=== PATIENT | female | born 1995 | race Caucasian/White ===

== ENCOUNTER → 2024-05-03 07:41 | Outpatient (CLI) | payer OTHER, SELFPAY ==
--- NOTE | 2024-05-03 07:43 | DI.ECHO.S_ITS ---
[facility] : : [address] : : [place] : : [id number] : : Phone: [phone] Echocardiogram Report + + :Name: KELBY WHITNEY Study Date: 05/03/2024 Height: 60 in : :Hospital ReadingLocation: Weight: 190 lb : : Gender: Female BSA: 1.8 m2 : :: 1995 Age: 28 yrs BP: 117/81 mmHg: :Reason For Study: ISCHEMIC HEART DISEASE : :Ordering Physician: REESE, : :PRIYANKA Performed By: Monica Good : :Referring: PRIYANKA LEIGH : + + Interpretation Summary 1) Normal left ventricular thickness, size, wall motion, and systolic function (EF 60-65%). 2) Normal right ventricular size and function. 3) No significant valvular abnormalities. 4) No prior Echo available for comparison. Procedure: A two-dimensional transthoracic echocardiogram with color flow and Doppler was performed. The study quality was technically adequate. There is no prior echocardiogram noted for this patient. The patient was in sinus bradycardia with heart rates between 54-74 bpm during the exam. Left Ventricle: The left ventricle is normal in size and wall thickness. The ejection fraction is estimated to be 60-65%. Left ventricular systolic function appears normal without focal wall motion abnormalities. Right Ventricle: The right ventricle is normal in size and function. Atria: The left atrial size is normal. Right atrial size is normal. There is no Doppler evidence for an interatrial shunt. Mitral Valve: The mitral valve is normal in structure and function. There is trace mitral regurgitation. Aortic Valve: The aortic valve is trileaflet. The aortic valve opens well. There is no aortic valve stenosis. No aortic regurgitation is present. Tricuspid Valve: The tricuspid valve is normal in structure and function. There is trace tricuspid regurgitation. Pulmonary artery pressures cannot be estimated because of the lack of a measurable TR jet velocity. Pulmonic Valve: The pulmonic valve leaflets are thin and pliable; valve motion is normal. There is trace pulmonic regurgitation. Great Vessels: The aortic root is normal size. The dimensions of the ascending aorta are normal. The IVC is of normal diameter and collapses greater than 50% with a sniff. This suggests a low right atrial pressure of 3 mm Hg. Pericardium/ Pleura There is no pericardial effusion. There is no pleural effusion. MMode/2D Measurements & Calculations LVIDd: 4.1 cm LVOT diam: 2.0 cm LVIDs: 2.7 cm Ao root diam: 2.8 cm FS: 34.4 % asc Aorta Diam: 3.0 cm IVSd: 0.82 cm Ao Arch Diam (Prox Trans): 2.8 cm LVPWd: 0.69 cm LV cotter. diameter/BSA (cm/m^2): 2.3 LV sys. diameter/BSA (cm/m^2): 1.5 LA A2 area: 15.8 cm2 RA long axis: 4.4 cm LA A4 area: 12.4 cm2 RA area: 11.5 cm2 LA length (vol): 4.5 cm RA vol: 25.4 ml LA vol: 36.8 ml RA : 13.9 ml/m2 LA vol index: 20.1 ml/m2 IVC diam: 0.98 cm RVD1 (basal): 3.6 cm RVD2 (mid): 3.4 cm TAPSE: 2.0 cm Doppler Measurements & Calculations Ao V2 max: 149.4 cm/sec LVOT Max Walter: 102.0 cm/sec Ao V2 mean: 107.6 cm/sec LV V1 max P.2 mmHg Ao max P.9 mmHg LV V1 VTI: 22.2 cm Ao mean P.0 mmHg KEYON(I,D): 2.1 cm2 Ao V2 VTI: 32.4 cm KEYON(V,D): 2.1 cm2 sev ratio: 0.69 KEYON indexed to BSA (cm^2/m^2): 1.2 MV E max walter: 75.5 cm/sec PA V2 max: 86.8 cm/sec MV A max walter: 39.0 cm/sec PA V2 mean: 65.1 cm/sec MV E/A: 1.9 PA mean P.8 mmHg Med Peak E' Walter: 11.4 cm/sec PA pr(Accel): 31.0 mmHg E/E' med: 6.6 Lat Peak E' Walter: 13.8 cm/sec E/E' lat: 5.5 E/e' average: 6.0 MV dec time: 0.22 sec SV(LVOT): 69.3 ml Reading Physician:12:40 PM
== END ==
LOC: ECHO 07:42
PROVIDERS: PCP Nurse Practitioner Primary Care; Referring Provider Chiropractor; Visit Provider Chiropractor
DX: I25.9 Chronic ischemic heart disease, unspecified (principal)
CPT/HCPCS: 93306

== ENCOUNTER 2024-08-11 06:43 | Emergency (ER) | payer OTHER, SELFPAY ==
[2024-08-11] VITALS (8 sets, daily range): BP systolic 94–125; BP diastolic 48–84; PULSE 65–92; RESP 9–17; TEMP 36.8; O2SAT 97–98; BMI 35.2
--- NOTE | 2024-08-11 06:56 | DI.RAD.S_ITS ---
PROCEDURE: XR CHEST 1V INDICATIONS: chest pain TECHNIQUE: One view of the chest was acquired. COMPARISON: None. FINDINGS: Surgical changes and devices: None. Lungs and pleura: Low lung volumes. No dense consolidation or pleural effusion Mediastinum: Normal heart size Bones and chest wall: No suspicious bony lesions. Overlying soft tissues appear unremarkable. IMPRESSION: Limited single view radiograph with low lung volumes. No acute abnormality. Dictated by: Arron Carvalho M.D. on 08/11/2024 at 7:50 Approved by: Arron Carvalho M.D. on 08/11/2024 at 7:50
--- NOTE | 2024-08-11 07:05 | EKG_ITS ---
[address] [address] Test Date: 2024-08-11 Pat Name: 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
[2024-08-11] MEDS: ASPIRIN 81 MG CHEW TAB 324 MG PO (07:17)
[2024-08-11 07:21] LABS: Add Manual Diff / Slide Review NO; Basophils Absolute Auto 100 /uL (0-100); Basophils Percent Auto 1.2 % (0-2); Eosinophils Absolute Auto 400 /uL (0-450); Eosinophils Percent Auto 7.8 % (2-4); Hematocrit 39.8 % (36-46); Lymphocytes Absolute Auto 1700 /uL (1100-4500); Lymphocytes Percent Auto 33.8 % (25-40); Mean Corpuscular HGB Conc 35.3 % (30-36); Mean Corpuscular Hemoglobin 29.1 PG (26-34); Mean Corpuscular Volume 82.4 fL (80-100); Monocytes Absolute Auto 400 /uL (0-900); Neutrophils Absolute Auto 2500 /uL (1500-7000); Neutrophils Percent Auto 49.2 % (50-75); Platelet Count 266 X10^3/uL (150-400); Red Blood Cell Count 4.82 X10^6/uL (4.0-5.2)
[2024-08-11 07:31] LABS: Albumin 3.7 g/dL (3.5-5.0); Albumin Globulin Ratio 1.2 (1.0-2.8); Alkaline Phosphatase 61 U/L (38-126); Aspartate Aminotransferase 30 IU/L (14-36); BUN Creatinine Ratio 23.9 (6-22); Bilirubin Total 0.6 mg/dL (0.2-1.3); Blood Urea Nitrogen 16 mg/dL (7-17); Calcium 8.8 mg/dL (8.4-10.2); Carbon Dioxide 21 mmol/L (22-32); Chloride 107 mmol/L (98-107); Creatine Kinase 103 U/L (30-135); Estimated Glomerular Filt Rate > 60 mL/min (>60); Glucose 148 mg/dL (70-100); Lipase 86 U/L (23-300); Magnesium 1.8 mg/dL (1.6-2.3); Potassium 3.7 mmol/L (3.4-5.1); Sodium 137 mmol/L (137-145); Total Protein 6.7 g/dL (6.3-8.2)
[2024-08-11 07:39] LABS: Alanine Aminotransferase 35 IU/L (<35); HEMOLYSIS 20 (0-50)
[2024-08-11 07:48] LABS: Troponin I < 0.012 ng/mL (0.01-0.034)
--- NOTE | 2024-08-11 07:53 | ED.CHESTPAIN ---
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 She is from [facility] but referral has not gone through. Reports she is having increased palpitations while lying flat without exerting herself. According to her watch her heart rate is in the 120s for approximately 10 minutes. She said this morning it woke her up at 4:30 a.m. and she has had 5 episodes. She currently is in a sinus rhythm with PACs heart rate 89. She has no shortness of breath. No fever or other symptoms. She does taken propranolol 10 mg daily prescribed by her psychiatrist. Related Data Allergies Allergy/AdvReac Type Severity Reaction Status Date / Time No Known Drug Allergies Allergy Verified 08/11/24 06:56 Patient History Social History Smoking Status: Never smoker Smoking Status: Never smoker Substance Use Type: does not use Exam Initial Vital Signs Initial Vital Signs: Vital Signs Pulse Rate 65 08/11/24 06:51 Respiratory Rate 17 08/11/24 06:51 Pulse Oximetry 98 08/11/24 06:51 GENERAL: Well-appearing 29-year-old female and in no acute distress. HEENT: Head atraumatic,EOMI, pupils reactive, face symmetric, moist mucous membranes CARDIOVASCULAR: Irregular no murmur RESPIRATORY: Breath sounds equal bilaterally, no wheezes rales or rhonchi. ABDOMEN: Soft, nontender. Normoactive bowel sounds all 4 quadrants. No guarding or rebound. EXTREMITIES: Normal range of motion, no clubbing or edema. Neurovascularly intact NEUROLOGICAL: Alert and oriented x4. SKIN: Warm, dry, no laceration, no petechiae, no rashes or lesions. Course Orders Ordered: ED Orders 08/11/24 06:56 XR chest 1V Stat EKG-12 Lead Stat 08/11/24 07:00 Complete Blood Count AUTO DIFF Stat Comprehensive Metabolic Panel Stat D Dimer Stat Lipase Stat Magnesium Stat Troponin & CK Cardiac Panel Stat Discontinued Medications Aspirin (Aspirin 81 Mg Chew Tab) 324 mg PO NOW ONE Stop: 08/11/24 06:57 Last Admin: 08/11/24 07:17 Dose: 324 mg Documented By: JACE Vital Signs Vital signs: Vital Signs - 8 hr 08/11/24 06:51 08/11/24 06:53 08/11/24 06:53 Temperature Pulse Rate 65 91 H Respiratory Rate 17 11 L Blood Pressure 125/84 Pulse Oximetry 98 98 Oxygen Delivery Method 08/11/24 06:57 08/11/24 07:00 08/11/24 07:00 Temperature 98.2 F Pulse Rate 92 H 90 Respiratory Rate 12 13 Blood Pressure 125/84 105/77 Pulse Oximetry 97 98 Oxygen Delivery Method Room Air Room Air 08/11/24 07:30 08/11/24 07:40 08/11/24 07:40 Temperature Pulse Rate 81 92 H Respiratory Rate 13 Blood Pressure 112/83 Pulse Oximetry 98 98 Oxygen Delivery Method 08/11/24 08:00 08/11/24 08:00 08/11/24 08:30 Temperature Pulse Rate 83 Respiratory Rate 10 L Blood Pressure 97/55 L 94/48 L Pulse Oximetry 98 Oxygen Delivery Method 08/11/24 08:30 Temperature Pulse Rate 74 Respiratory Rate 9 L Blood Pressure Pulse Oximetry 98 Oxygen Delivery Method MDM - Chest Pain Lab Data 08/11/24 07:00 08/11/24 07:00 Labs: Lab Results 08/11/24 Range/Units 07:00 WBC 5.0 (4.5-11.0) X10^3/uL RBC 4.82 (4.0-5.2) X10^6/uL Hgb 14.0 (12.0-16.0) g/dL Hct 39.8 (36-46) % MCV 82.4 (80-100) fL MCH 29.1 (26-34) PG MCHC 35.3 (30-36) % RDW 13.0 (11.6-14.8) % Plt Count 266 (150-400) X10^3/uL Neut % (Auto) 49.2 L (50-75) % Lymph % (Auto) 33.8 (25-40) % [place] % (Auto) 8.0 (3-14) % Eos % (Auto) 7.8 H (2-4) % Baso % (Auto) 1.2 (0-2) % Neut # (Auto) 2500 (9887-1598) /uL Lymph # (Auto) 1700 (7319-4463) /uL [place] # (Auto) 400 (0-900) /uL Eos # (Auto) 400 (0-450) /uL Baso # (Auto) 100 (0-100) /uL D-Dimer 285 (<500) ng/ml Sodium 137 (137-145) mmol/L Potassium 3.7 (3.4-5.1) mmol/L Chloride 107 (98-107) mmol/L Carbon Dioxide 21 L (22-32) mmol/L BUN 16 (7-17) mg/dL Creatinine 0.67 (0.52-1.04) mg/dL Estimated GFR > 60 (>60) mL/min BUN/Creatinine Ratio 23.9 H (6-22) Glucose 148 H (70-100) mg/dL Calcium 8.8 (8.4-10.2) mg/dL Magnesium 1.8 (1.6-2.3) mg/dL Total Bilirubin 0.6 (0.2-1.3) mg/dL AST 30 (14-36) IU/L ALT 35 H (<35) IU/L Alkaline Phosphatase 61 (38-126) U/L Total Creatine Kinase 103 (30-135) U/L Troponin I < 0.012 (0.01-0.034) ng/mL Total Protein 6.7 (6.3-8.2) g/dL Albumin 3.7 (3.5-5.0) g/dL Globulin 3.0 (1.7-4.1) g/dL Albumin/Globulin Ratio 1.2 (1.0-2.8) Lipase 86 (23-300) U/L Imaging Data Chest x-ray: Radiologist's Impression: PROCEDURE: XR CHEST 1V INDICATIONS: chest pain TECHNIQUE: One view of the chest was acquired. COMPARISON: None. FINDINGS: Surgical changes and devices: None. Lungs and pleura: Low lung volumes. No dense consolidation or pleural effusion Mediastinum: Normal heart size Bones and chest wall: No suspicious bony lesions. Overlying soft tissues appear unremarkable. IMPRESSION: Limited single view radiograph with low lung volumes. No acute abnormality. Dictated by: Arron Carvalho M.D. on 08/11/2024 at 7:50 ECG Data Attestation: I personally reviewed and interpreted this ECG as follows: Prior ECG tracings: not available for review Interpretation: Sinus rhythm with PAC no ST changes MDM Narrative Medical decision making narrative: Patient 29-year-old female presenting today with palpitations. History of WPW and AFib. Not on anticoagulation currently not in AFib but does have frequent PACs. Blood work has been reviewed overall reassuring, D-dimer is 285 low suspicion for pulmonary embolism. She does have a sinus arrhythmia with PACs frequently on a monitor heart rate never spit up. She reports that she has previously had a ZIO patch but is allergic to the adhesive and so fell off after 1 day. She is waiting for referral from the [place] to get into Cardiology but that has not happened yet. At this time no evidence of atrial fibrillation WPW or tachycardia. Chest x-ray has been reviewed without acute cardiopulmonary process EKG reviewed sinus rhythm with PACs Discharge Plan Departure Patient Disposition: Home Clinical Impression: Heart palpitations Instructions: DI for Palpitations Activity Restrictions/Additional Instructions: *You have been diagnosed with palpitations *What to do: At this time you do need to get in to see cardiology, I do recommend that you call and try and schedule either was [facility] Cardiology [facility] Cardiology or [facility] cardiology *Continue to take medications as directed *Follow up with your primary care provider in 2-3 days or call [phone] *Return to ER if you should have increasing palpitations heart rate greater than 120 an hour passing out shortness of [or] any new, worsening or concerning symptoms Referrals: Luz Hester ARNP [Primary Care Provider] - Stand Alone Forms: Patient Portal/API
[2024-08-11 08:02] LABS: D Dimer 285 ng/ml (<500)
== END 2024-08-11 08:57 | disposition home or self-care (01) ==
PROVIDERS: Emergency Medicine; Emergency Provider Emergency Medicine; PCP Nurse Practitioner Primary Care
DX: R00.2 Palpitations (principal); R07.9 Chest pain, unspecified
CPT/HCPCS: 36415; 71045; 80053; 82550; 83690; 83735; 84484; 85025; 85379; 93005; 99284

== ENCOUNTER 2024-08-29 03:08 | Emergency (ER) | payer OTHER, SELFPAY ==
[2024-08-29 03:14] VITALS: PULSE 76; RESP 13; O2SAT 97
--- NOTE | 2024-08-29 03:15 | ED.ARRPALP ---
HPI - Arrhythmia/Palpitations General Chief Complaint: Arrhythmia/Palpitations Stated Complaint: heart palpatations Time Seen by Provider: 08/29/24 03:09 History of Present Illness HPI narrative: 29yoF with PMH WPW (in infancy) presents by private vehicle from home for palpitations and the sensation that she was going to pass out. States I think I'm going into SVT. Patient states that this has been ongoing for several weeks. Here in the emergency department 08/11 for similar complaint. Workup at that time showed frequent PACs but no other abnormalities. Patient states that she took propranolol prior to going to bed but woke up around midnight with the sensation of palpitations. She took another propranolol, but she states that she kept feeling like she was going to pass out and decided to come in for evaluation. Patient has an appointment with her PCP later today. She states that she was here today as a precaution to make sure that she was not having a heart attack or other major cardiac event. Patient denies shortness of breath, leg swelling, orthopnea, recent surgeries or immobilizations, use of OCPs. Related Data Allergies Allergy/AdvReac Type Severity Reaction Status Date / Time No Known Drug Allergies Allergy Verified 08/11/24 06:56 Patient History Social History Smoking Status: Never smoker Smoking Status: Never smoker Substance Use Type: does not use Exam Initial Vital Signs Initial Vital Signs: Vital Signs Pulse Rate 76 08/29/24 03:14 Respiratory Rate 13 08/29/24 03:14 Pulse Oximetry 97 08/29/24 03:14 Const: Awake, alert, no acute distress, nontoxic appearing Cardiac: regular rate, regular rhythm RESP: unlabored, clear bilaterally, no wheezing GI: Soft, nontender, nondistended, no rebound, no guarding MSK: Atraumatic, full range of motion, pulses equal Skin: Warm, Dry, intact, no rashes Neuro: AO x3, CN II-XII grossly intact, moves all extremities Course Orders Ordered: ED Orders 08/29/24 03:11 EKG-12 Lead Stat 08/29/24 03:22 CBC Auto Diff [Complete Blood Count AUTO DIFF] Stat CMP [Comprehensive Metabolic Panel] Stat TSH [Thyroid Stimulating Hormone] Stat Troponin & CK Cardiac Panel Stat 08/29/24 03:42 Chest [XR chest 2V] Stat Vital Signs Vital signs: Vital Signs - 8 hr 08/29/24 03:14 08/29/24 03:16 08/29/24 03:30 Temperature 96.6 F L Pulse Rate 76 76 77 Respiratory Rate 13 16 15 Blood Pressure 110/62 Pulse Oximetry 97 97 97 Oxygen Delivery Method Room Air Room Air 08/29/24 03:55 08/29/24 03:55 08/29/24 04:00 Temperature Pulse Rate 71 73 Respiratory Rate 12 13 Blood Pressure 100/60 Pulse Oximetry 98 98 Oxygen Delivery Method Room Air 08/29/24 04:00 08/29/24 04:30 08/29/24 04:30 Temperature Pulse Rate 68 Respiratory Rate 11 L Blood Pressure 99/59 L 97/63 Pulse Oximetry 99 Oxygen Delivery Method MDM - Arrhythmia/Palpitations Lab Data 08/29/24 03:22 08/29/24 03:22 Labs: Lab Results 08/29/24 Range/Units 03:22 WBC 8.3 (4.5-11.0) X10^3/uL RBC 5.33 H (4.0-5.2) X10^6/uL Hgb 15.5 (12.0-16.0) g/dL Hct 43.2 (36-46) % MCV 81.1 (80-100) fL MCH 29.1 (26-34) PG MCHC 35.9 (30-36) % RDW 13.1 (11.6-14.8) % Plt Count 356 (150-400) X10^3/uL Neut % (Auto) 32.5 L (50-75) % Lymph % (Auto) 37.4 (25-40) % [place] % (Auto) 6.2 (3-14) % Eos % (Auto) 22.9 H (2-4) % Baso % (Auto) 1.0 (0-2) % Neut # (Auto) 2700 (8804-9548) /uL Lymph # (Auto) 3100 (3316-6332) /uL [place] # (Auto) 500 (0-900) /uL Eos # (Auto) 1900 H (0-450) /uL Baso # (Auto) 100 (0-100) /uL D-Dimer Cancelled Sodium 136 L (137-145) mmol/L Potassium 4.0 (3.4-5.1) mmol/L Chloride 105 (98-107) mmol/L Carbon Dioxide 23 (22-32) mmol/L BUN 16 (7-17) mg/dL Creatinine 0.72 (0.52-1.04) mg/dL Estimated GFR > 60 (>60) mL/min BUN/Creatinine Ratio 22.2 H (6-22) Glucose 120 H (70-100) mg/dL Calcium 9.2 (8.4-10.2) mg/dL Total Bilirubin 0.6 (0.2-1.3) mg/dL AST 34 (14-36) IU/L ALT 35 H (<35) IU/L Alkaline Phosphatase 76 (38-126) U/L Total Creatine Kinase 83 (30-135) U/L Troponin I < 0.012 (0.01-0.034) ng/mL Total Protein 7.5 (6.3-8.2) g/dL Albumin 4.0 (3.5-5.0) g/dL Globulin 3.5 (1.7-4.1) g/dL Albumin/Globulin Ratio 1.1 (1.0-2.8) TSH 3.87 (0.47-4.68) uIU/mL ECG Data Interpretation: Normal sinus rhythm at 72 beats per minute. Normal ME, no ST T wave changes, no STEMI MDM Narrative Medical decision making narrative: Palpitations and the sensation that she was going to pass out. Has been ongoing for several weeks. Seen 2 weeks prior with unremarkable workup. On housing assistant property manager there do seem to be several PACs. EKG normal sinus rhythm without concerning findings. Other vital signs within normal limits. Received a call from lab stating that D-dimer analyzer is down and cannot be updated tonight. Decision made to cancel test. In any case patient is overal very low risk with no known risk factors, and I believe palpitations are much more likely to be caused by Vyvanse or other etiology. Laboratory work reviewed, unremarkable. Troponin undetectable. Patient has remained in normal sinus rhythm with PACs present, but no other cardiac arrhythmia. Patient has a primary care appointment later today. Patient was advised that she should discuss the possibility of maybe switching from Vyvanse to a different ADHD medication to see if this helps her palpitations. Patient also counseled to be careful with caffeine and other stimulating drugs. Discharge Plan Departure Patient Disposition: Home Clinical Impression: Palpitations, Atrial premature complexes Instructions: DI for Arrhythmias Activity Restrictions/Additional Instructions: Your workup today did not show any signs of stress or strain on your heart. Your thyroid levels today were normal as well. On the housing assistant property manager it did appear that you had frequent PACs, which can cause palpitations. I would talk to your doctor about Vyvanse and if this could be potentially related or contributing to your palpitations. Be careful around caffeine, nicotine, or any other stimulant substances as these can also worsen palpitations. Referrals: Luz Hester ARNP [Primary Care Provider] - Stand Alone Forms: Patient Portal/API
[2024-08-29 03:16] VITALS: BP 110/62; PULSE 76; RESP 16; TEMP 35.9; O2SAT 97; BMI 35.2
--- NOTE | 2024-08-29 03:20 | EKG_ITS ---
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
[2024-08-29 03:30] VITALS: PULSE 77; RESP 15; O2SAT 97
[2024-08-29 03:35] LABS: Add Manual Diff / Slide Review NO; Basophils Absolute Auto 100 /uL (0-100); Eosinophils Absolute Auto 1900 /uL (0-450); Eosinophils Percent Auto 22.9 % (2-4); Hematocrit 43.2 % (36-46); Hemoglobin 15.5 g/dL (12.0-16.0); Lymphocytes Absolute Auto 3100 /uL (1100-4500); Lymphocytes Percent Auto 37.4 % (25-40); Mean Corpuscular HGB Conc 35.9 % (30-36); Mean Corpuscular Hemoglobin 29.1 PG (26-34); Mean Corpuscular Volume 81.1 fL (80-100); Monocytes Absolute Auto 500 /uL (0-900); Monocytes Percent Auto 6.2 % (3-14); Neutrophils Absolute Auto 2700 /uL (1500-7000); Neutrophils Percent Auto 32.5 % (50-75); Platelet Count 356 X10^3/uL (150-400); Red Blood Cell Count 5.33 X10^6/uL (4.0-5.2); Red Cell Distribution Width 13.1 % (11.6-14.8); White Blood Cell Count 8.3 X10^3/uL (4.5-11.0)
[2024-08-29 03:42] LABS: Alanine Aminotransferase 35 IU/L (<35); Albumin Globulin Ratio 1.1 (1.0-2.8); Alkaline Phosphatase 76 U/L (38-126); Aspartate Aminotransferase 34 IU/L (14-36); BUN Creatinine Ratio 22.2 (6-22); Bilirubin Total 0.6 mg/dL (0.2-1.3); Blood Urea Nitrogen 16 mg/dL (7-17); Calcium 9.2 mg/dL (8.4-10.2); Carbon Dioxide 23 mmol/L (22-32); Chloride 105 mmol/L (98-107); Creatine Kinase 83 U/L (30-135); Estimated Glomerular Filt Rate > 60 mL/min (>60); Globulin 3.5 g/dL (1.7-4.1); Glucose 120 mg/dL (70-100); HEMOLYSIS 29 (0-50); Sodium 136 mmol/L (137-145); Total Protein 7.5 g/dL (6.3-8.2)
--- NOTE | 2024-08-29 03:42 | DI.RAD.S_ITS ---
PROCEDURE: XR CHEST 2V INDICATIONS: palpitations TECHNIQUE: 2 views of the chest were acquired. COMPARISON: [facility], CR, XR CHEST 1V, 08/11/2024, 7:24. FINDINGS: Surgical changes and devices: None. Lungs and pleura: Lungs are clear. No pleural effusions or pneumothorax. Mediastinum: Mediastinal contours are normal. Heart size is normal. Bones and chest wall: No suspicious bony abnormalities. Soft tissues appear unremarkable. IMPRESSION: No acute cardiopulmonary abnormality is seen. Agree with preliminary report. Dictated by: Vahe Freeman M.D. on 08/29/2024 at 8:05 Approved by: Vahe Freeman M.D. on 08/29/2024 at 8:09
[2024-08-29 03:54] LABS: Troponin I < 0.012 ng/mL (0.01-0.034)
[2024-08-29 03:55] VITALS: BP 100/60; PULSE 71; RESP 12; O2SAT 98
[2024-08-29 04:00] VITALS: BP 99/59; PULSE 73; RESP 13; O2SAT 98
[2024-08-29 04:19] LABS: Thyroid Stimulating Hormone 3.87 uIU/mL (0.47-4.68)
[2024-08-29 04:30] VITALS: BP 97/63; PULSE 68; RESP 11; O2SAT 99
== END 2024-08-29 04:52 | disposition home or self-care (01) ==
PROVIDERS: Emergency Provider Emergency Medicine; PCP Nurse Practitioner Primary Care
DX: R00.2 Palpitations (principal); I49.1 Atrial premature depolarization
CPT/HCPCS: 36415; 71046; 80053; 82550; 84443; 84484; 85025; 93005; 93010; 99283; 99284

== ENCOUNTER 2025-02-08 07:09 | Day surgery (SDC) | payer OTHER, SELFPAY ==
[2025-02-08 07:34] VITALS: BP 112/78; PULSE 90; RESP 14; TEMP 36.6; O2SAT 97
[2025-02-08] MEDS: LACTATED RINGERS 1,000 ML 42 ML IV (07:42)
--- NOTE | 2025-02-08 08:06 | PM.HP.IH.1 ---
History of Present Illness History of Present Illness Date Patient Seen: 02/08/25 Time Patient Seen: 08:06 Chief complaint: SDC Narrative: Lien is a 29-year-old woman who is here for a colonoscopy. She has had symptoms including abdominal pain bloating which are exacerbated by eating. She had a colonoscopy in a proximally 2018 and was told she had ?IBS?. PFSH Social History Smoking Status: Never smoker alcohol intake: current Meds Home Medications and Allergies Home Medications Medication Instructions Recorded Confirmed Type Vyvanse 30 mg PO PRN PRN depression 02/08/25 02/08/25 History duloxetine 20 mg PO DAILY 02/08/25 02/08/25 History propranolol 10 mg tablet 10 mg PO DAILY 02/08/25 02/08/25 History Allergies Allergy/AdvReac Type Severity Reaction Status Date / Time No Known Drug Allergies Allergy Verified 02/08/25 07:26 Exam Vital Signs (past 8 hours): - 02/08/25 07:34 Temperature 97.8 F Pulse Rate 90 Respiratory Rate 14 Blood Pressure 112/78 Pulse Oximetry 97 Oxygen Delivery Method Room Air Oxygen Delivery Method Room Air Const General: No acute distress Assessment & Plan Assessment and plan (1) Abdominal pain: Qualifiers: Abdominal location: generalized Qualified Code(s): R10.84 - Generalized abdominal pain Status: Acute Plan We discussed the role of colonoscopy. If there are any abnormalities of the mucosa biopsies can be performed. If polyps are seen they can be removed. If no cause is identified she can follow up with me in the office for more discussion. Time-Based Coding :: [TOTAL MINUTES] spent with patient and on the chart (including review of chart, obtaining history, exam, reviewing outside data, placing orders, documenting exam and treatment plan, and counseling patient) on [DATE]. PROFEE Social Insurance Specialist Document charge(s): No
[2025-02-08 08:29] VITALS: BP 110/78; PULSE 81; RESP 16; TEMP 36.1; O2SAT 97
--- NOTE | 2025-02-08 08:33 | PM.OP.COLON ---
Operative Date/Time/Diagnoses Date of procedure: 02/08/25 Time of procedure: 08:33 Pre-op diagnosis: Dyspepsia Post-op diagnosis: same Procedure & Clinicians Study performed: Colonoscopy Same procedure as scheduled: Yes Surgeon: Jayson Bojorquez Procedure Notes Procedure in detail: Surgeon: Jayson Bojorquez MD Anesthesia: Dorys Hammond CRNA Procedure: The patient was brought to the endoscopy suite, placed in left lateral decubitus position. The patient was connected to monitoring devices. A time-out was performed. Sedation was administered. Once the patient was adequately sedated, a digital rectal exam was performed and was normal. The scope was then inserted and advanced to the cecum where the appendiceal orifice was identified and photographed. The scope was then slowly withdrawn over greater than 6 minutes. The mucosa was thoroughly inspected. No abnormalities were identified. The scope was retroflexed in the rectum. The scope was straightened and removed. The patient was awakened and brought to recovery. Scope withdrawal time: 7 minutes Sedation time: 12 minutes EBL: 0 Findings: Normal colon Post-procedure Plan for aftercare: Next colonoscopy at age 43 Disposition: PACU
[2025-02-08 08:34] VITALS: BP 108/64; PULSE 74; RESP 15; O2SAT 99
[2025-02-08 08:39] VITALS: BP 104/66; PULSE 67; RESP 15; O2SAT 98
[2025-02-08 08:46] VITALS: BP 107/68; PULSE 69; RESP 16; O2SAT 99
== END 2025-02-08 09:00 | disposition home or self-care (01) ==
PROVIDERS: PCP Nurse Practitioner Primary Care; Referring Provider Surgery; Visit Provider Surgery
PROC: 0DJD8ZZ Inspection of Lower Intestinal Tract, Via Natural or Artificial Opening Endoscopic (ICD-10-PCS; CPT 45378; principal; 2025-02-08 08:15)
DX: R10.13 Epigastric pain (principal); R10.9 Unspecified abdominal pain; R14.0 Abdominal distension (gaseous)
CPT/HCPCS: 45378; J2405; J2704

== ENCOUNTER 2025-05-07 09:57 | Emergency (ER) | payer OTHER, SELFPAY ==
[2025-05-07] VITALS (19 sets, daily range): BP systolic 84–134; BP diastolic 50–76; PULSE 66–92; RESP 11–32; TEMP 36.6–37.1; O2SAT 95–100; BMI 35.5
--- NOTE | 2025-05-07 10:01 | EKG_ITS ---
[address] [address] Test Date: 2025-05-07 Pat Name: [facility] Department: Room: Gender: Female Program Checker: CLAUDIA : 1995 Requested By: Order Number: [id number] Reading MD: Wesley Arredondo Measurements Intervals [place] Rate: 89 P: 68 [place]: 140 QRS: 18 QRSD: 76 T: 35 QT: 390 QTc: 474 Interpretive Statements Sinus rhythm with marked sinus arrhythmia with occasional premature ventricular complexes Electronically Signed On 05-11-2025 0:03:22 PDT by Wesley Arredondo
--- NOTE | 2025-05-07 10:01 | DI.RAD.S_ITS ---
PROCEDURE: XR CHEST 1V INDICATIONS: Chest Pain TECHNIQUE: One view of the chest was acquired. COMPARISON: [facility], CR, XR CHEST 2V, 08/29/2024, 3:44. [facility], CR, XR CHEST 1V, 08/11/2024, 7:24. FINDINGS: Surgical changes and devices: None. Lungs and pleura: Lungs are clear. No pleural effusions or pneumothorax. Mediastinum: Mediastinal contours appear normal. Heart size is normal. Bones and chest wall: No suspicious bony lesions. Overlying soft tissues appear unremarkable. IMPRESSION: No acute cardiopulmonary abnormality is seen. Dictated by: Vahe Freeman M.D. on 05/07/2025 at 10:15 Approved by: Vahe Freeman M.D. on 05/07/2025 at 10:15
--- NOTE | 2025-05-07 10:24 | ED.ARRPALP ---
HPI - Arrhythmia/Palpitations General Chief Complaint: Arrhythmia/Palpitations Stated Complaint: fast heart beat for a month and a half Time Seen by Provider: 05/07/25 10:11 Source: patient Mode of arrival: Ambulatory History of Present Illness HPI narrative: Patient here for palpitations. Patient had cardiac ablation for atrial fibrillation in September 2024 at [facility]. Has not been on any antiarrhythmics or blood thinners since then. She would occasionally get palpitations since this surgery but in the past 1.5 months of palpitations. Feels like a strong beat every once in a while. EKG does show sinus rhythm with occasional PVCs. Patient in no distress at this time. Patient is no longer on propanolol. Patient denies any chest pain or dyspnea Related Data Home Medications ?Medication ?Instructions ?Recorded ?Confirmed Vyvanse 30 mg PO PRN PRN depression 02/08/25 04/16/25 propranolol 10 mg tablet 10 mg PO DAILY 02/08/25 04/16/25 duloxetine 30 mg capsule,delayed 30 mg PO DAILY 04/16/25 04/16/25 release famotidine 20 mg tablet 20 mg PO DAILY 04/16/25 04/16/25 Allergies Allergy/AdvReac Type Severity Reaction Status Date / Time No Known Drug Allergies Allergy Verified 04/16/25 10:01 Review of Systems Review of Systems Narrative: GENERAL: Negative chills, fatigue, malaise, fever, sweats. HEENT: Negative sinus pain, ear pain, sore throat RESPIRATORY: Negative dyspnea, cough CARDIOVASCULAR: Negative chest pain, positive palpitations GASTROINTESTINAL: Negative vomiting, nausea, abdominal pain : Negative dysuria, frequency, hematuria MUSCULOSKELETAL: Negative muscle or bony pain SKIN: Negative rash, skin lesions NEUROLOGIC: Negative weakness, numbness ROS Unobtainable: All systems reviewed & are unremarkable except as noted in HPI and below Patient History Social History Smoking Status: Never smoker alcohol intake: current Smoking Status: Never smoker Exam Narrative Exam Narrative: GENERAL: in no distress, not toxic not dyspneic HEAD: Normocephalic. EYES: Pupils equal round ENT: Mucous membranes moist. NECK: Trachea midline. CARDIOVASCULAR: Regular rate and rhythm, there are pauses between regular rate and rhythm. RESPIRATORY: Clear to auscultation. Breath sounds equal bilaterally. No wheezes, rales, or rhonchi. GASTROINTESTINAL: Abdomen soft, non-tender EXTREMITIES: No gross deformities. BACK: No flank tenderness. NEURO: AOx4. Clear speech SKIN: Warm and dry PSYCH: Not anxious, is cooperative Initial Vital Signs Initial Vital Signs: Vital Signs Temperature 97.8 F 05/07/25 10:02 Pulse Rate 83 05/07/25 10:02 Respiratory Rate 18 05/07/25 10:02 Blood Pressure 121/76 05/07/25 10:02 Pulse Oximetry 100 05/07/25 10:02 Oxygen Delivery Method Room Air 05/07/25 10:02 Course Orders Ordered: Discontinued Medications Aspirin (Aspirin 81 Mg Chew Tab) 324 mg PO NOW ONE Stop: 05/07/25 10:02 Last Admin: 05/07/25 10:22 Dose: Not Given Documented By: LM Sodium Chloride (Normal Saline 0.9%) 1,000 mls @ 1,000 mls/hr IV BOLUS ONE Stop: 05/07/25 12:04 Last Infusion: 05/07/25 12:37 Dose: Infused Documented By: Admin: 05/07/25 11:07 Dose: 1,000 mls/hr Documented By: LM Vital Signs Vital signs: Vital Signs - 8 hr 05/07/25 10:02 05/07/25 10:20 05/07/25 10:21 Temperature 97.8 F Pulse Rate 83 76 Respiratory Rate 18 Blood Pressure 121/76 Pulse Oximetry 100 97 97 Oxygen Delivery Method Room Air 05/07/25 10:21 05/07/25 10:30 05/07/25 10:30 Temperature Pulse Rate 74 Respiratory Rate 11 L Blood Pressure 109/59 L 101/58 L Pulse Oximetry 97 Oxygen Delivery Method 05/07/25 11:00 05/07/25 11:00 05/07/25 11:02 Temperature Pulse Rate 72 72 Respiratory Rate 18 16 Blood Pressure 84/53 L Pulse Oximetry 96 98 Oxygen Delivery Method 05/07/25 11:02 05/07/25 11:04 05/07/25 11:04 Temperature Pulse Rate 69 Respiratory Rate 12 Blood Pressure 84/50 L 94/55 L Pulse Oximetry 97 Oxygen Delivery Method 05/07/25 11:30 05/07/25 11:30 05/07/25 12:00 Temperature Pulse Rate 74 86 Respiratory Rate 20 14 Blood Pressure 105/59 L Pulse Oximetry 99 100 Oxygen Delivery Method 05/07/25 12:00 05/07/25 12:30 05/07/25 12:30 Temperature Pulse Rate 82 Respiratory Rate 16 Blood Pressure 109/65 109/58 L Pulse Oximetry 99 Oxygen Delivery Method MDM - Arrhythmia/Palpitations Lab Data 05/07/25 10:20 05/07/25 10:20 Labs: Lab Results 05/07/25 05/07/25 Range/Units 10:20 12:24 WBC 4.9 (4.5-11.0) X10^3/uL RBC 4.69 (4.0-5.2) X10^6/uL Hgb 13.8 (12.0-16.0) g/dL Hct 39.1 (36-46) % MCV 83.4 (80-100) fL MCH 29.5 (26-34) PG MCHC 35.3 (30-36) % RDW 12.5 (11.6-14.8) % Plt Count 283 (150-400) X10^3/uL Neut % (Auto) 57.3 (50-75) % Lymph % (Auto) 29.5 (25-40) % [place] % (Auto) 8.0 (3-14) % Eos % (Auto) 4.5 H (2-4) % Baso % (Auto) 0.7 (0-2) % Neut # (Auto) 2800 (7733-4263) /uL Lymph # (Auto) 1400 (7796-3587) /uL [place] # (Auto) 400 (0-900) /uL Eos # (Auto) 200 (0-450) /uL Baso # (Auto) 0 (0-100) /uL PT 11.0 (9.4-12.5) SECONDS INR 1.0 (0.9-1.3) APTT 39 H (25.1-36.5) SECONDS D-Dimer 232 (<500) ng/ml Sodium 138 (137-145) mmol/L Potassium 3.9 (3.4-5.1) mmol/L Chloride 106 (98-107) mmol/L Carbon Dioxide 24 (22-32) mmol/L BUN 16 (7-17) mg/dL Creatinine 0.70 (0.52-1.04) mg/dL Estimated GFR > 60 (>60) mL/min BUN/Creatinine Ratio 22.9 H (6-22) Glucose 91 (70-99) mg/dL Calcium 8.9 (8.4-10.2) mg/dL Magnesium 1.9 (1.6-2.3) mg/dL Total Bilirubin 0.7 (0.2-1.3) mg/dL AST 33 (14-36) IU/L ALT 29 (<35) IU/L Alkaline Phosphatase 60 (38-126) U/L Total Creatine Kinase 130 (30-135) U/L Troponin I < 0.012 < 0.012 (0.01-0.034) ng/mL NT-Pro-B Natriuret Pep 103 (<125) pg/mL Total Protein 7.0 (6.3-8.2) g/dL Albumin 4.0 (3.5-5.0) g/dL Globulin 3.0 (1.7-4.1) g/dL Albumin/Globulin Ratio 1.3 (1.0-2.8) Lipase 58 (23-300) U/L TSH 1.46 (0.47-4.68) uIU/mL Serum , Qual Negative (Negative) Imaging Data Chest x-ray: Radiologist's Impresson: [address] [address] XRay Report Signed Patient: Lien Ontiveros MR#: [id number] : 1995 Acct:[id number] Age/Sex: 30 / F Date of Service: 05/07/25 Loc: ED Accession Number: [id number] Procedure: XR chest 1V Ordering Provider: Daniel Crowell MD PROCEDURE: XR CHEST 1V INDICATIONS: Chest Pain TECHNIQUE: One view of the chest was acquired. COMPARISON: [facility], CR, XR CHEST 2V, 08/29/2024, 3:44. [facility], CR, XR CHEST 1V, 08/11/2024, 7:24. FINDINGS: Surgical changes and devices: None. Lungs and pleura: Lungs are clear. No pleural effusions or pneumothorax. Mediastinum: Mediastinal contours appear normal. Heart size is normal. Bones and chest wall: No suspicious bony lesions. Overlying soft tissues appear unremarkable. IMPRESSION: No acute cardiopulmonary abnormality is seen. Dictated by: Vahe Freeman M.D. on 05/07/2025 at 10:15 Approved by: Vahe Freeman M.D. on 05/07/2025 at 10:15 [facility] Narrative Medical decision making narrative: Patient here for palpitations. Patient had cardiac ablation for atrial fibrillation in September 2024 at [facility]. Has not been on any antiarrhythmics or blood thinners since then. She would occasionally get palpitations since this surgery but in the past 1.5 months of palpitations. Feels like a strong beat every once in a while. EKG does show sinus rhythm with occasional PVCs. Patient in no distress at this time. Patient is no longer on propanolol. Patient denies any chest pain or dyspnea. 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 Pertinent findings: Hemoglobin 13.8 hematocrit 39.1 INR 1.0 sodium 138 potassium 3.9 glucose 91 magnesium 1.9 troponin less than 0.012 BNP 103 TSH 1.46- Independently reviewed EKG sinus rhythm rate 89, occasional PVC. Repeat EKG at 12:12 p.m.. Sinus rhythm rate 65 there is long pauses every 3rd or 4th beat. Imaging studies independently reviewed: Chest x-ray no acute finding Consultations: 12:43 p.m.. Spoke with [facility] cardiology, dr nichols, he would like patient transferred to their facility through hospitalist. 2:13 p.m.. Spoke with hospitalist spoke with [facility], Dr. Hutchins, he will accept patient Re-evaluations: Patient does feel palpitations with these changes in EKG/PVCs and pauses. 12:50 p.m.. Spoke with patient and she does agree for transfer to [facility] and the need for it. She is having long 5 sec pauses. Discussion: Appropriate for transfer for higher level of care and needing electrophysiology Cardiology. Diagnosis: Palpitations Discharge Plan Departure Patient Disposition: [facility] Clinical Impression: Palpitations Prescriptions: No Action duloxetine 30 mg capsule,delayed release(DR/EC) 30 mg PO DAILY famotidine 20 mg tablet 20 mg PO DAILY propranolol 10 mg Tablet 10 mg PO DAILY Vyvanse 30 mg PO PRN PRN (Reason: depression) Referrals: Luz Hester ARNP [Primary Care Provider, Nursing]
[2025-05-07 10:27] LABS: Add Manual Diff / Slide Review NO; Basophils Absolute Auto 0 /uL (0-100); Basophils Percent Auto 0.7 % (0-2); Eosinophils Absolute Auto 200 /uL (0-450); Eosinophils Percent Auto 4.5 % (2-4); Hematocrit 39.1 % (36-46); Hemoglobin 13.8 g/dL (12.0-16.0); Lymphocytes Absolute Auto 1400 /uL (1100-4500); Lymphocytes Percent Auto 29.5 % (25-40); Mean Corpuscular HGB Conc 35.3 % (30-36); Mean Corpuscular Hemoglobin 29.5 PG (26-34); Mean Corpuscular Volume 83.4 fL (80-100); Monocytes Absolute Auto 400 /uL (0-900); Neutrophils Absolute Auto 2800 /uL (1500-7000); Neutrophils Percent Auto 57.3 % (50-75); Platelet Count 283 X10^3/uL (150-400); Red Blood Cell Count 4.69 X10^6/uL (4.0-5.2); Red Cell Distribution Width 12.5 % (11.6-14.8); White Blood Cell Count 4.9 X10^3/uL (4.5-11.0)
[2025-05-07 10:41] LABS: Alanine Aminotransferase 29 IU/L (<35); Albumin Globulin Ratio 1.3 (1.0-2.8); Alkaline Phosphatase 60 U/L (38-126); Aspartate Aminotransferase 33 IU/L (14-36); BUN Creatinine Ratio 22.9 (6-22); Bilirubin Total 0.7 mg/dL (0.2-1.3); Blood Urea Nitrogen 16 mg/dL (7-17); Calcium 8.9 mg/dL (8.4-10.2); Carbon Dioxide 24 mmol/L (22-32); Chloride 106 mmol/L (98-107); Creatine Kinase 130 U/L (30-135); Estimated Glomerular Filt Rate > 60 mL/min (>60); Glucose 91 mg/dL (70-99); HEMOLYSIS < 15 (0-50); Lipase 58 U/L (23-300); Magnesium 1.9 mg/dL (1.6-2.3); Potassium 3.9 mmol/L (3.4-5.1); Sodium 138 mmol/L (137-145)
[2025-05-07 10:45] LABS: Pregnancy Test Serum,Qual Negative (Negative)
[2025-05-07 10:52] LABS: NT-proBNP (BNP-Adult 18+) 103 pg/mL (<125); Troponin I < 0.012 ng/mL (0.01-0.034)
[2025-05-07 10:58] LABS: PTT Partial Thromboplastin Tim 39 SECONDS (25.1-36.5)
[2025-05-07 11:06] LABS: D Dimer 232 ng/ml (<500)
[2025-05-07] MEDS: SODIUM CHLORIDE 0.9% 1,000 ML 1000 ML IV (11:07)
[2025-05-07 11:17] LABS: Thyroid Stimulating Hormone 1.46 uIU/mL (0.47-4.68)
--- NOTE | 2025-05-07 12:12 | EKG_ITS ---
[place] [address] [place] [id number] Test Date: 2025-05-07 Pat Name: [facility] Department: [facility] Room: Gender: Female Pbx Teacher: NILESH : 1995 Requested By: Order Number: [id number] Reading MD: Wesley Arredondo Measurements Intervals [place] Rate: 65 P: 57 NC: 148 QRS: 6 QRSD: 86 T: 23 QT: 434 QTc: 451 Interpretive Statements Sinus rhythm with marked sinus arrhythmia Low voltage QRS Cannot rule out Anterior infarct , age undetermined Electronically Signed On 05-11-2025 0:03:41 PDT by Wesley Arredondo
--- NOTE | 2025-05-07 12:39 | PC.NURSE ---
Pt laying on RA bhatia A&Ox4, breathing even\equal\unlabored at this time. Pt endorses more frequent episodes of heart palpitations/fluttering, when pt endorses fluttering afib is noted on tele. Afib and pt reported symptoms last from several seconds to 30-45 seconds, pt goes back into NSR. Provider is aware and episodes captured on tele and shown to provider. cardiology being consulted. Pt updated
[2025-05-07 12:54] LABS: Troponin I < 0.012 ng/mL (0.01-0.034)
== END 2025-05-07 15:43 | disposition short-term general hospital (02) ==
PROVIDERS: Emergency Provider Emergency Medicine; PCP Nurse Practitioner Primary Care
DX: R00.2 Palpitations (principal); R07.9 Chest pain, unspecified
CPT/HCPCS: 36415; 71045; 80053; 82550; 83690; 83735; 83880; 84443; 84484; 84703; 85025; 85379; 85610; 85730; 93005; 96360; 99284

== ENCOUNTER 2025-11-25 20:44 | Emergency (ER) | payer OTHER, SELFPAY ==
[2025-11-25 20:57] VITALS: BP 121/78; PULSE 81; RESP 18; TEMP 36.9; O2SAT 100; BMI 35.2
--- NOTE | 2025-11-25 21:01 | DI.RAD.S_ITS ---
PROCEDURE: XR CHEST 1V INDICATIONS: Chest Pain TECHNIQUE: One view of the chest was acquired. COMPARISON: [facility], CR, XR CHEST 1V, 05/07/2025, 10:03. FINDINGS: Surgical changes and devices: None. Lungs and pleura: Lungs are clear. No pleural effusions or pneumothorax. Mediastinum: Mediastinal contours appear normal. Heart size is normal. Bones and chest wall: No suspicious bony lesions. Overlying soft tissues appear unremarkable. IMPRESSION: No acute pulmonary process. Dictated by: Mariel Goetz M.D. on 11/25/2025 at 21:32 Approved by: Mariel Goetz M.D. on 11/25/2025 at 21:32
--- NOTE | 2025-11-25 21:03 | EKG_ITS ---
[address] [address] Test Date: 2025-11-25 Pat Name: [facility] Department: Room: Gender: Female Staffing Clerk: ESTEFANI : 1995 Requested By: Order Number: [id number] Reading MD: Neto Santos Measurements Intervals [place] Rate: 74 P: 50 [place]: 142 QRS: 15 QRSD: 78 T: 34 QT: 400 QTc: 444 Interpretive Statements Sinus rhythm with sinus arrhythmia with occasional and consecutive premature ventricular complexes Electronically Signed On 11-26-2025 10:42:58 PST by Neto Santos
[2025-11-25] MEDS: ASPIRIN 81 MG CHEW TAB 324 MG PO (21:20)
[2025-11-25 21:21] LABS: Add Manual Diff / Slide Review NO; Hematocrit 39.1 % (36-46); Hemoglobin 13.8 g/dL (12.0-16.0); Lymphocytes Absolute Auto 1900 /uL (1100-4500); Mean Corpuscular HGB Conc 35.3 % (30-36); Mean Corpuscular Hemoglobin 28.8 PG (26-34); Mean Corpuscular Volume 81.7 fL (80-100); Platelet Count 280 X10^3/uL (150-400)
[2025-11-25 21:28] LABS: INR 0.9 (0.9-1.3); Prothrombin Time 10.5 SECONDS (9.4-12.5)
[2025-11-25 21:30] VITALS: BP 116/75; PULSE 67; RESP 18; O2SAT 99
[2025-11-25 21:31] LABS: PTT Partial Thromboplastin Tim 34 SECONDS (25.1-36.5)
[2025-11-25 21:33] LABS: Alanine Aminotransferase 22 IU/L (<35); Albumin 4.1 g/dL (3.5-5.0); Albumin Globulin Ratio 1.3 (1.0-2.8); Alkaline Phosphatase 56 U/L (38-126); Blood Urea Nitrogen 13 mg/dL (7-17); Calcium 8.6 mg/dL (8.4-10.2); Carbon Dioxide 24 mmol/L (22-32); Chloride 108 mmol/L (98-107); Creatine Kinase 99 U/L (30-135); Estimated Glomerular Filt Rate > 60 mL/min (>60); Globulin 3.2 g/dL (1.7-4.1); Glucose 105 mg/dL (70-99); HEMOLYSIS 17 (0-50); Lipase 155 U/L (23-300); Magnesium 1.8 mg/dL (1.6-2.3); Potassium 4.1 mmol/L (3.4-5.1); Sodium 138 mmol/L (137-145); Total Protein 7.3 g/dL (6.3-8.2)
[2025-11-25 21:44] LABS: NT-proBNP (BNP-Adult 18+) < 20 pg/mL (<125); Troponin I < 0.012 ng/mL (0.01-0.034)
--- NOTE | 2025-11-25 21:45 | ED_ITS ---
HPI - Chest Pain General Chief Complaint: Chest Pain Stated Complaint: Afib, stomach pain Time Seen by Provider: 11/25/25 20:53 Source: patient Mode of arrival: Ambulatory History of Present Illness HPI narrative: Patient is a 30 year old female who presents with chest discomfort, shortness of breath, and palpitation that has been worsening over the past month. Patient medical history significant for atrial fibrillation s/p ablation Sep 2024 on ASA. Her manager heart is at [facility]. She reports epigastric tenderness without radiation, no nausea, vomiting. No fevers, chills. Of note, she has been seen in the ER on 04/2025 for palpations. Prior to the ablation, she was in the ER multiple times for palpitations. Related Data Home Medications ?Medication ?Instructions ?Recorded ?Confirmed Vyvanse 30 mg PO PRN PRN depression 02/08/25 04/16/25 propranolol 10 mg tablet 10 mg PO DAILY 02/08/2503/29 duloxetine 30 mg capsule,delayed 30 mg PO DAILY 04/16/25 release famotidine 20 mg tablet 20 mg PO DAILY 04/16/2503/29 Previous Rx's ?Medication ?Instructions ?Recorded pantoprazole 20 mg tablet,delayed 20 mg PO DAILY #30 t abs 11/25/25 release (Protonix) Allergies Allergy/AdvReac Type Severity Reaction Status Date / Time No Known Drug Allergies Allergy Verified 11/25/25 20:57 Review of Systems Review of Systems ROS Unobtainable: All systems reviewed & are unremarkable except as noted in HPI and below Patient History Social History Smoking Status: Never smoker alcohol intake: current Smoking Status: Never smoker Exam Narrative Exam Narrative: Vitals: Afebrile, all other vital signs normal Gen: Well developed, well nourished, no acute distressed Card: Regular, no murmurs, rubs, or gallops Pulm: No increased work of breathing, clear to auscultation bilateraly Abd: Soft nondistended, mild tenderness to palpation in epigastric region Ext: No edema in bilaterally lower extremity Neuro: A&O x 4, CN grossly intact, moving all 4 extremities spontaneous Psych: Appropriate Initial Vital Signs Initial Vital Signs: Vital Signs Temperature 98.5 F 11/25/25 20:57 Pulse Rate 81 11/25/25 20:57 Respiratory Rate 18 11/25/25 20:57 Blood Pressure 121/78 11/25/25 20:57 Pulse Oximetry 100 11/25/25 20:57 Oxygen Delivery Method Room Air 11/25/25 20:57 Scores HEART Score Heart Score history: Moderately Suspicious Heart Score EKG: Normal Heart Score Age: < 45 years old Heart Score risk factors: No known risk factors Heart Score troponin: < or = to normal limit Heart Score Total: 1 Course Orders Ordered: Discontinued Medications Aspirin (Aspirin 81 Mg Chew Tab) 324 mg PO NOW ONE Stop: 11/25/25 21:02 Last Admin: 11/25/25 21:20 Dose: 324 mg Documented By: DEE DEE Al Hydrox/Mg Hydrox/Simethicone 30 ml/ Lidocaine HCl 15 ml 0 ml PO NOW ONE Stop: 11/25/25 21:45 Last Admin: 11/25/25 21:56 Dose: 45 ml Documented By: ANGELICA Pantoprazole Sodium (Pantoprazole 40 Mg Vial) 40 mg IV NOW ONE Stop: 11/25/25 21:45 Last Admin: 11/25/25 21:55 Dose: 40 mg Documented By: ANGELICA Vital Signs Vital signs: Vital Signs - 8 hr 11/25/25 20:57 Temperature 98.5 F Pulse Rate 81 Respiratory Rate 18 Blood Pressure 121/78 Pulse Oximetry 100 Oxygen Delivery Method Room Air MDM - Chest Pain Lab Data 11/25/25 21:05 11/25/25 21:05 Labs: Lab Results 11/25/25 Range/Units 21:05 WBC 6.8 (4.5-11.0) X10^3/uL RBC 4.79 (4.0-5.2) X10^6/uL Hgb 13.8 (12.0-16.0) g/dL Hct 39.1 (36-46) % MCV 81.7 (80-100) fL MCH 28.8 (26-34) PG MCHC 35.3 (30-36) % RDW 13.0 (11.6-14.8) % Plt Count 280 (150-400) X10^3/uL Neut % (Auto) 60.7 (50-75) % Lymph % (Auto) 27.7 (25-40) % [place] % (Auto) 5.9 (3-14) % Eos % (Auto) 3.2 (2-4) % Baso % (Auto) 2.5 H (0-2) % Neut # (Auto) 4100 (5856-4159) /uL Lymph # (Auto) 1900 (3742-7604) /uL [place] # (Auto) 400 (0-900) /uL Eos # (Auto) 200 (0-450) /uL Baso # (Auto) 200 H (0-100) /uL PT 10.5 (9.4-12.5) SECONDS INR 0.9 (0.9-1.3) APTT 34 (25.1-36.5) SECONDS Sodium 138 (137-145) mmol/L Potassium 4.1 (3.4-5.1) mmol/L Chloride 108 H (98-107) mmol/L Carbon Dioxide 24 (22-32) mmol/L BUN 13 (7-17) mg/dL Creatinine 0.95 (0.52-1.04) mg/dL Estimated GFR > 60 (>60) mL/min BUN/Creatinine Ratio 13.7 (6-22) Glucose 105 H (70-99) mg/dL Calcium 8.6 (8.4-10.2) mg/dL Magnesium 1.8 (1.6-2.3) mg/dL Total Bilirubin 0.4 (0.2-1.3) mg/dL AST 28 (14-36) IU/L ALT 22 (<35) IU/L Alkaline Phosphatase 56 (38-126) U/L Total Creatine Kinase 99 (30-135) U/L Troponin I < 0.012 (0.01-0.034) ng/mL NT-Pro-B Natriuret Pep < 20 (<125) pg/mL Total Protein 7.3 (6.3-8.2) g/dL Albumin 4.1 (3.5-5.0) g/dL Globulin 3.2 (1.7-4.1) g/dL Albumin/Globulin Ratio 1.3 (1.0-2.8) Lipase 155 (23-300) U/L Imaging Data Abdominal x-ray: Radiologist's Impression: PROCEDURE: XR CHEST 1V INDICATIONS: Chest Pain TECHNIQUE: One view of the chest was acquired. COMPARISON: [facility], CR, XR CHEST 1V, 05/07/2025, 10:03. FINDINGS: Surgical changes and devices: None. Lungs and pleura: Lungs are clear. No pleural effusions or pneumothorax. Mediastinum: Mediastinal contours appear normal. Heart size is normal. Bones and chest wall: No suspicious bony lesions. Overlying soft tissues appear unremarkable. IMPRESSION: No acute pulmonary process. Dictated by: Mariel Goetz M.D. on 11/25/2025 at 21:32 Approved by: Mariel Goetz M.D. on 11/25/2025 at 21:32 [facility] Narrative Medical decision making narrative: 30 year old female with a history of atrial fibrillation s/p ablation and loop recorder presents with chest discomfort, shortness of breath, and palpitations. -- Differential diagnosis: ACS, tachyarrhythmias, AC block, prematural atrial contractions, premature ventricular contractions, sick sinus syndrome, hyperthyroidism, other. -- Labs: No leukocytosis, left shift, anemia, normal platelets. Chem panel normal. Troponin negative. BNP normal. -- Imaging: CXR without any abnormalities. -- EK:03 sinus rhythm with sinus arrythmia with occasional PVS, HR 74, KS 142, QT 400, QTc 444 -- Consults: None ED summary: The patient presents with intermittent chest discomfort and palpitations in the context of prior atrial fibrillation and ablation. Her vital signs remained stable, and she had no evidence of ischemia, with a negative troponin and normal BNP. EKG showed sinus rhythm with occasional PVCs, which may correlate with her symptoms. Chest X ray was unremarkable, and labs did not reveal infection, anemia, electrolyte disturbance, or thyroid related triggers. Her physical exam significant for epigastric tenderness, patient was given GI cocktail and protonix with improvement of her symptoms. Given her reassuring workup, absence of sustained arrhythmia, and stable hemodynamics, HEART score 1. She is appropriate for outpatient follow-up with cardiology and monitoring via her loop recorder. Return precautions were reviewed, including worsening chest pain, persistent palpitations, syncope, dyspnea, or new neurologic symptoms. Discharge Plan Departure Patient Disposition: Home Clinical Impression: Peptic ulcer disease Abdominal pain Qualifiers: Abdominal location: generalized Qualified Code(s): R10.84 - Generalized abdominal pain Activity Restrictions/Additional Instructions: You were seen in the emergency department for chest pain. In the ER: -- Cardiac workup to include chest x-ray, EKG, cardiac enzymes were not consistent with a heart attack -- Your EKG did show occasional consecutive PVCs. 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 Follow up with the primary care physician for this condition and possible need for additional upper endoscopy. Return to the ER if you develop any new or worsening symptoms to include severe worsening abdominal pain, chest pain, shortness of breath, nausea, vomiting. Prescriptions: New pantoprazole [Protonix] 20 mg tablet,delayed release (DR/EC) 20 mg PO DAILY Qty: 30 0RF No Action duloxetine 30 mg capsule,delayed release(DR/EC) 30 mg PO DAILY famotidine 20 mg tablet 20 mg PO DAILY propranolol 10 mg Tablet 10 mg PO DAILY Vyvanse 30 mg PO PRN PRN (Reason: depression) Referrals: Luz Hester ARNP [Primary Care Provider, Nursing] Stand Alone Forms: Patient Portal/API
[2025-11-25] MEDS: PANTOPRAZOLE 40 MG VIAL IV (21:55)
[2025-11-25] MEDS: MAG HYDROX/ALUMINUM/SIMETH SUS 30 ML, LIDOCAINE VISCOUS 2% 15 ML PO (21:56)
[2025-11-25 22:00] VITALS: BP 114/67; PULSE 63; RESP 18; O2SAT 99
[2025-11-25 22:15] VITALS: PULSE 73; RESP 12; O2SAT 99
[2025-11-25 22:30] VITALS: BP 109/63; PULSE 71; RESP 14; O2SAT 99
[2025-11-25 23:00] VITALS: BP 117/60; PULSE 78; RESP 25; O2SAT 97
== END 2025-11-25 23:10 | disposition home or self-care (01) ==
PROVIDERS: Emergency Provider Student in an Organized Health Care Education/Training Program; PCP Nurse Practitioner Primary Care
DX: R07.9 Chest pain, unspecified (principal); R10.84 Generalized abdominal pain; K27.9 Peptic ulcer, site unspecified, unspecified as acute or chronic, without hemorrhage or perforation; I49.3 Ventricular premature depolarization; R06.02 Shortness of breath; Z86.79 Personal history of other diseases of the circulatory system
CPT/HCPCS: 36415; 71045; 80053; 82550; 83690; 83735; 83880; 84484; 85025; 85610; 85730; 93005; 96374; 99284; J2470